=== PATIENT | male | born 1990 | race Caucasian/White ===

== ENCOUNTER 2018-03-02 13:25 | Emergency (ER) | payer MEDICAID ==
[~2018-03-02] VITALS: Wt 75.4 kg
[2018-03-02] MEDS ORDERED: IBUPROFEN 600 MG TAB PO ONE (14:30)
[2018-03-02] MEDS ORDERED: IBUP-1542 PO (15:36)
--- NOTE | 2018-03-02 15:39 | ERD ---
ER Documentation Chief Complaint Chief Complaint bib self, cc: right lower abd. pain x 1 day HPI 28-year-old male presents with a one day history of intermittent sharp right lower mid abdominal pain. Denies any fevers, decreased appetite, vomiting, diarrhea, constipation, urinary complaints. Pain is currently absent and relieved with Tylenol. ROS All systems reviewed and are negative except as per history of present illness. Medications Home Meds Active Scripts Ibuprofen* (Motrin*) 600 Mg Tab, 600 MG PO Q6, #20 TAB Prov:MADELYN EWING MD 03/02/18 Allergies Allergies: Coded Allergies: No Known Allergy (Unverified , 03/02/18) PMhx/Soc Medical and Surgical Hx: pt denies Medical Hx, pt denies Surgical Hx Hx Alcohol Use: Yes (social) Hx Substance Use: No Hx Tobacco Use: No Smoking Status: Never smoker FmHx Family History: No diabetes, No coronary disease, No other Physical Exam Vitals Vital Signs Date Temp Pulse Resp B/P (MAP) Pulse Ox O2 O2 Flow FiO2 Time Delivery Rate 03/02/18 99.3 90 19 126/65 100 13:31 (85) Physical Exam Const: No acute distress Head: Atraumatic Eyes: Normal Conjunctiva ENT: Normal External Ears, Nose and Mouth. Neck: Full range of motion. No meningismus. Resp: Clear to auscultation bilaterally Cardio: Regular rate and rhythm, no murmurs Abd: Soft, non tender, non distended. Normal bowel sounds Skin: No petechiae or rashes Back: No midline or flank tenderness Ext: No cyanosis, or edema Neur: Awake and alert Psych: Normal Mood and Affect Result Diagram: 03/02/18 1437 03/02/18 1437 Results 24 hrs Laboratory Tests Test 03/02/18 14:37 White Blood Count 7.5 10^3/ul Red Blood Count 5.16 10^6/ul Hemoglobin 14.2 g/dl Hematocrit 42.7 % Mean Corpuscular Volume 82.8 fl Mean Corpuscular Hemoglobin 27.5 pg Mean Corpuscular Hemoglobin Concent 33.3 g/dl Red Cell Distribution Width 13.7 % Platelet Count 295 10^3/UL Mean Platelet Volume 9.8 fl Immature Granulocytes % 0.100 % Neutrophils % 52.7 % Lymphocytes % 38.6 % Monocytes % 6.0 % Eosinophils % 1.9 % Basophils % 0.7 % Nucleated Red Blood Cells % 0.0 /100WBC Immature Granulocytes # 0.010 10^3/ul Neutrophils # 3.9 10^3/ul Lymphocytes # 2.9 10^3/ul Monocytes # 0.5 10^3/ul Eosinophils # 0.1 10^3/ul Basophils # 0.1 10^3/ul Nucleated Red Blood Cells # 0.0 10^3/ul Urine Color STRAW Urine Clarity CLEAR Urine pH 6.0 Urine Specific [place] 1.009 Urine Ketones NEGATIVE mg/dL Urine Nitrite NEGATIVE mg/dL Urine Bilirubin NEGATIVE mg/dL Urine Urobilinogen NEGATIVE mg/dL Urine Leukocyte Esterase NEGATIVE Zonia/ul Urine Hemoglobin NEGATIVE mg/dL Urine Glucose NEGATIVE mg/dL Urine Total Protein NEGATIVE mg/dl Sodium Level 141 mmol/L Potassium Level 3.9 mmol/L Chloride Level 102 mmol/L Carbon Dioxide Level 26 mmol/L Anion Gap 13 Blood Urea Nitrogen 12 mg/dl Creatinine 0.64 mg/dl Est Glomerular Filtrat Rate mL/min > 60 mL/min Glucose Level 123 mg/dl Calcium Level 10.1 mg/dl Total Bilirubin 0.5 mg/dl Direct Bilirubin 0.00 mg/dl Indirect Bilirubin 0.5 mg/dl Aspartate Amino Transf (AST/SGOT) 37 IU/L Alanine Aminotransferase (ALT/SGPT) 41 IU/L Alkaline Phosphatase 132 IU/L Total Protein 8.5 g/dl Albumin 4.9 g/dl Globulin 3.60 g/dl Albumin/Globulin Ratio 1.36 Lipase 57 U/L Current Medications Medications Dose Sig/Brandon Start Time Status Last (Trade) Ordered Route PRN Stop Time Admin Dose Reason Admin Ibuprofen 600 mg ONCE ONCE 03/02/18 DC 03/02/18 (Motrin) PO 14:30 14:39 03/02/18 14:32 Procedures/MDM CBC, CMP and urine normal. Patient presents with resolved lower abdominal pain which is sharp and intermittent. Current signs or symptoms do not suggest appendicitis, obstruction, surgical abdomen. There is no evidence of genitourinary etiology. We discharged home with close observation, ibuprofen and recommendations for 8-12-hour recheck for recurrent lower abdominal pain especially for fevers, nausea, vomiting, new worsening symptoms. Current absence of symptoms do not warrant further radiologic study but patient is advised to recheck as recommended. The patient was stable with no new complaints during the ER course. Clinically, there is no current evidence to suggest meningitis, sepsis, acute abdomen, pneumonia, stroke, acute coronary syndrome, pulmonary embolism, aortic dissection or any other emergent condition appearing to require further evaluation or hospitalization. Patient counseled regarding my diagnostic impression and care plan. Prior to discharge all questions answered. Pt agrees with treatment plan and understands strict return precautions. Pt is instructed to follow up with primary care provider within 24- 48 hours. Precautionary instructions provided including instructions to return to the ER if not improving or for any worsening or changing symptoms or concerns. Departure Diagnosis: Primary Impression: Abdominal pain Abdominal location: lower abdomen, unspecified Qualified Codes: R10.30 - Lower abdominal pain, unspecified Condition: Stable Patient Instructions: Abdominal Pain Referrals: EMERGENCY[facility] (PCP) Additional Instructions: Horita los examines dice no tiene appendicits o emferma mal, patito es importante coma esta en el proximo louis. chequ 8-12 horas par mas dolor, especialamente derecho y abajo vomito , fiebre, nueva simptomas. MADELYN EWING MD Mar 02, 2018 15:39
== END 2018-03-02 16:16 | disposition home or self-care (01) ==
LOC: FTE 13:25
DX: R10.31 Right lower quadrant pain (principal)
CPT/HCPCS: 36415; 80053; 81003; 83690; 85025; Z7502; Z7610; 99283